=== PATIENT | male | born 1950 | race African-American/Black ===

== ENCOUNTER 2020-06-22 19:29 | Inpatient (IN) | payer OTHER ==
[~2020-06-22] VITALS: Ht 185.4 cm; Wt 114.8 kg
[2020-06-22 22:35] LABS: HEMOGLOBIN. 15.3 g/dL (14.0-18.0); MEAN CORPUSCULAR HEMOGLOBIN 29.3 pg (28.0-32.0); MEAN PLATELET VOLUME 7.2 fl (7.4-10.4); PLATELET 318 x1000/uL (130-400); RED BLOOD CELL COUNT 5.23 mill/uL (4.7-6.1); RED CELL DISTRIBUTION WIDTH 17.3 % (11.6-14.6)
[2020-06-22 22:41] LABS: CHLORIDE 100 mEq/L (98-107)
[2020-06-22 22:45] LABS: PROTHROMBIN TIME 10.7 sec (9.6-11.0)
[2020-06-22 22:47] LABS: ETHANOL BLOOD < 10 mg/dL
[2020-06-22 22:55] LABS: PLATELET ESTIMATE NORMAL
[2020-06-22] MEDS ORDERED: ACYCLOVIR INJ 750 MG in DEXT 5% WATER 125 ML IV SCH (23:00)
[2020-06-22] MEDS ORDERED: VANCOMYCIN 1 G PREMIX 200 ML IV SCH (23:00)
[2020-06-22] MEDS ORDERED: CEFTRIAXONE 1 G PREMIX 50 ML IV ONE (23:00)
[2020-06-23] VITALS (8 sets, daily range): BP systolic 109–134; BP diastolic 59–96
[2020-06-23] MEDS ORDERED: MAGNESIUM/ALUMINUM HYDROXIDE/SIMETHICONE 30ML UDC PO PRN
[2020-06-23] MEDS ORDERED: ONDANSETRON HCL 4MG/2ML INJ IV PRN
[2020-06-23] MEDS ORDERED: GUAIFENESIN 200MG/10ML SUGAR FREE UDC PO PRN
[2020-06-23] MEDS ORDERED: HYDRALAZINE 20MG/ML VIAL IV PRN
[2020-06-23] MEDS ORDERED: DIPHENHYDRAMINE 50MG/ML VIAL IV PRN
[2020-06-23] MEDS ORDERED: HYDROCODONE/ACETAMINOPHEN 5/325MG TABLET PO PRN
[2020-06-23] MEDS ORDERED: MORPHINE SULFATE 2 MG/ML CPJ (NOT FOR IM USE) IV PRN
[2020-06-23] MEDS ORDERED: CLONIDINE 0.1MG TABLET PO PRN
[2020-06-23] MEDS ORDERED: DOCUSATE SODIUM 100MG CAPSULE PO PRN
[2020-06-23] MEDS: DEXT 5%/0.45% NACL 1000ML 1,000 ML IV SCH ×2 (05:00→17:46)
[2020-06-23] MEDS: SODIUM CHLORIDE 0.9% INJ 3ML FLUSH IVF SCH ×3 (06:04→21:08)
[2020-06-23 06:42] LABS: BASOPHILS % 0.4 % (0.0-2.0); HEMATOCRIT. 47.5 % (42.0-52.0); HEMOGLOBIN. 15.3 g/dL (14.0-18.0); LYMPHOCYTES % 7.4 % (20.0-50.0); MEAN CORPUSCULAR HEMOGLOBIN 28.7 pg (28.0-32.0); MEAN PLATELET VOLUME 7.1 fl (7.4-10.4); MONOCYTES % 10.1 % (2.0-8.0); NEUTROPHILS % 82.1 % (40.0-76.0); PLATELET 239 x1000/uL (130-400); RED BLOOD CELL COUNT 5.34 mill/uL (4.7-6.1); RED CELL DISTRIBUTION WIDTH 17.1 % (11.6-14.6)
[2020-06-23 07:38] LABS: CHLORIDE 100 mEq/L (98-107)
[2020-06-23 07:47] LABS: CREATINE KINASE 102 IU/L (39-308)
[2020-06-23 07:49] LABS: CREATINE KINASE MB FRACTION 2.6 ng/mL (0.5-3.6)
[2020-06-23] MEDS ORDERED: LEVETIRACETAM 500MG PREMIX 100 ML IV SCH (09:00)
[2020-06-23] MEDS: ENOXAPARIN 30MG/0.3ML SYR SUBCUT SCH ×2 (10:24→21:08)
[2020-06-23] MEDS: LEVETIRACETAM 500MG PREMIX 100 ML IV SCH ×2 (10:25→21:08)
[2020-06-23] MEDS: ASPIRIN 81MG TABLET PO SCH (11:07)
[2020-06-23] MEDS: DILTIAZEM HCL 30MG TABLET PO SCH ×2 (11:08→17:46)
[2020-06-23] MEDS: FUROSEMIDE 40MG/4ML VIAL IVP SCH (11:46)
[2020-06-23 16:34] LABS: CREATINE KINASE MB FRACTION 2.4 ng/mL (0.5-3.6)
[2020-06-23] MEDS: LORAZEPAM 2MG/ML CPJ IV PRN (21:09)
[2020-06-24] VITALS (11 sets, daily range): BP systolic 128–155; BP diastolic 74–102
[2020-06-24] MEDS: DILTIAZEM HCL 30MG TABLET PO SCH ×3 (03:24→11:51)
[2020-06-24] MEDS: SODIUM CHLORIDE 0.9% INJ 3ML FLUSH IVF SCH ×3 (04:45→22:26)
[2020-06-24 06:43] LABS: BASOPHILS % 0.4 % (0.0-2.0); EOSINOPHILS % 0.1 % (0.0-5.0); HEMATOCRIT. 42.3 % (42.0-52.0); HEMOGLOBIN. 13.9 g/dL (14.0-18.0); LYMPHOCYTES % 13.5 % (20.0-50.0); MEAN CORPUSCULAR HEMOGLOBIN 28.7 pg (28.0-32.0); MEAN CORPUSCULAR VOLUME 87.6 fL (80.0-94.0); MEAN PLATELET VOLUME 7.4 fl (7.4-10.4); MONOCYTES % 8.4 % (2.0-8.0); NEUTROPHILS % 77.6 % (40.0-76.0); PLATELET 259 x1000/uL (130-400); RED BLOOD CELL COUNT 4.83 mill/uL (4.7-6.1); RED CELL DISTRIBUTION WIDTH 17.2 % (11.6-14.6)
[2020-06-24 07:41] LABS: CHLORIDE 100 mEq/L (98-107)
[2020-06-24] MEDS: ASPIRIN 81MG TABLET PO SCH (09:00)
[2020-06-24] MEDS: FUROSEMIDE 40MG/4ML VIAL IVP SCH (09:14)
[2020-06-24] MEDS: ENOXAPARIN 30MG/0.3ML SYR SUBCUT SCH ×2 (09:15→20:31)
[2020-06-24] MEDS: LEVETIRACETAM 500MG PREMIX 100 ML IV SCH (09:24)
[2020-06-24] MEDS: DEXT 5%/0.45% NACL 1000ML 1,000 ML IV SCH (11:04)
[2020-06-24] MEDS ORDERED: DILTIAZEM HCL 125 MG in DEXT 5% WATER 100 ML IV SCH (13:00)
[2020-06-24] MEDS ORDERED: ACETAMINOPHEN 650MG SUPP PR PRN (13:15)
[2020-06-24] MEDS: DILTIAZEM HCL 125 MG in DEXT 5% WATER 100 ML IV SCH (14:00)
[2020-06-24] MEDS: LORAZEPAM 2MG/ML CPJ IV PRN ×2 (14:59→19:29)
[2020-06-24] MEDS: LEVETIRACETAM 1000MG PREMIX 100 ML IV SCH (20:32)
[2020-06-25] VITALS (36 sets, daily range): BP systolic 75–159; BP diastolic 30–102
[2020-06-25] MEDS: LORAZEPAM 2MG/ML CPJ IV PRN ×4 (00:28→12:08)
[2020-06-25] MEDS: DILTIAZEM HCL 125 MG in DEXT 5% WATER 100 ML IV SCH ×3 (02:18→23:09)
[2020-06-25] MEDS: DEXT 5%/0.45% NACL 1000ML 1,000 ML IV SCH ×2 (03:00→23:15)
[2020-06-25] MEDS: SODIUM CHLORIDE 0.9% INJ 3ML FLUSH IVF SCH ×3 (06:03→21:41)
[2020-06-25 06:28] LABS: BASOPHILS % 0.6 % (0.0-2.0); EOSINOPHILS % 0.3 % (0.0-5.0); HEMATOCRIT. 43.8 % (42.0-52.0); HEMOGLOBIN. 14.6 g/dL (14.0-18.0); LYMPHOCYTES % 15.3 % (20.0-50.0); MEAN CORPUSCULAR VOLUME 86.9 fL (80.0-94.0); MEAN PLATELET VOLUME 7.2 fl (7.4-10.4); MONOCYTES % 8.4 % (2.0-8.0); NEUTROPHILS % 75.4 % (40.0-76.0); PLATELET 235 x1000/uL (130-400); RED BLOOD CELL COUNT 5.04 mill/uL (4.7-6.1); RED CELL DISTRIBUTION WIDTH 17.1 % (11.6-14.6)
[2020-06-25 07:38] LABS: CHLORIDE 102 mEq/L (98-107)
[2020-06-25] MEDS: FUROSEMIDE 40MG/4ML VIAL IVP SCH (08:18)
[2020-06-25] MEDS: ASPIRIN 81MG TABLET PO SCH (08:18)
[2020-06-25] MEDS: ENOXAPARIN 30MG/0.3ML SYR SUBCUT SCH ×2 (08:18→21:40)
[2020-06-25] MEDS: LEVETIRACETAM 1000MG PREMIX 100 ML IV SCH (08:19)
[2020-06-25] MEDS ORDERED: POTASSIUM CHLORIDE INJ 40 MEQ in DEXT 5% WATER 250 ML IV SCH (10:00)
[2020-06-25] MEDS ORDERED: DIGOXIN 500MCG/2ML AMP IV SCH (12:00)
[2020-06-25] MEDS ORDERED: LEVETIRACETAM 1,500 MG in SODIUM CHLORIDE 0.9% 100 ML IV SCH (13:00)
[2020-06-25] MEDS ORDERED: PHENYTOIN SODIUM 100MG/2ML VIAL IV ONE (14:15)
[2020-06-25] MEDS: PHENYTOIN SODIUM 100MG/2ML VIAL IV SCH ×2 (14:17→21:40)
[2020-06-25] MEDS ORDERED: PHENYLEPHRINE 100 MG in DEXT 5% WATER 240 ML IV PRN (14:30)
[2020-06-25] MEDS ORDERED: PHENYTOIN SODIUM 500 MG in SODIUM CHLORIDE 0.9% 100 ML IV SCH (15:00)
[2020-06-25] MEDS: ACETAMINOPHEN 325MG TABLET PO PRN (15:34)
[2020-06-25 15:51] LABS: *AMPHETAMINES SCREEN URINE NEGATIVE (NEGATIVE); *BARBITURATES SCREEN URINE NEGATIVE (NEGATIVE); *BENZODIAZEPINES SCREEN URINE NEGATIVE (NEGATIVE); CANNABINOID URINE SCREEN NEGATIVE (NEGATIVE); OPIATES URINE SCREEN NEGATIVE (NEGATIVE); PHENCYCLIDINE URINE SCREEN NEGATIVE (NEGATIVE)
[2020-06-25 15:52] LABS: *COCAINE SCREEN URINE NEGATIVE (NEGATIVE)
[2020-06-25 15:56] LABS: METHADONE URINE SCREEN NEGATIVE (NEGATIVE)
[2020-06-25] MEDS ORDERED: METOPROLOL TARTRATE 25MG TABLET NG SCH (21:00)
[2020-06-25] MEDS: LEVETIRACETAM 1,500 MG in SODIUM CHLORIDE 0.9% 100 ML IV SCH (21:40)
[2020-06-26] VITALS (92 sets, daily range): BP systolic 101–149; BP diastolic 20–112
[2020-06-26] MEDS: LORAZEPAM 2MG/ML CPJ IV PRN ×2 (04:31→07:12)
[2020-06-26] MEDS: SODIUM CHLORIDE 0.9% INJ 3ML FLUSH IVF SCH ×3 (06:17→21:49)
[2020-06-26] MEDS: PHENYTOIN SODIUM 100MG/2ML VIAL IV SCH ×3 (06:17→21:49)
[2020-06-26 06:34] LABS: BASOPHILS % 0.4 % (0.0-2.0); HEMATOCRIT. 46.3 % (42.0-52.0); HEMOGLOBIN. 15.1 g/dL (14.0-18.0); LYMPHOCYTES % 17.5 % (20.0-50.0); MEAN CORPUSCULAR HEMOGLOBIN 28.4 pg (28.0-32.0); MEAN CORPUSCULAR VOLUME 87.5 fL (80.0-94.0); MEAN PLATELET VOLUME 7.2 fl (7.4-10.4); MONOCYTES % 7.4 % (2.0-8.0); NEUTROPHILS % 73.7 % (40.0-76.0); PLATELET 214 x1000/uL (130-400); RED CELL DISTRIBUTION WIDTH 16.7 % (11.6-14.6)
[2020-06-26 07:03] LABS: CHLORIDE 103 mEq/L (98-107)
[2020-06-26] MEDS ORDERED: METOPROLOL TARTRATE 50MG TABLET NG SCH (09:30)
[2020-06-26] MEDS: LEVETIRACETAM 1,500 MG in SODIUM CHLORIDE 0.9% 100 ML IV SCH ×2 (09:34→23:07)
[2020-06-26] MEDS: FUROSEMIDE 40MG/4ML VIAL IVP SCH (09:34)
[2020-06-26] MEDS: ENOXAPARIN 30MG/0.3ML SYR SUBCUT SCH ×2 (09:34→20:58)
[2020-06-26] MEDS: DILTIAZEM HCL 125 MG in DEXT 5% WATER 100 ML IV SCH ×3 (09:35→21:20)
[2020-06-26] MEDS: ASPIRIN 81MG TABLET PO SCH (09:35)
[2020-06-26] MEDS ORDERED: PHENYTOIN SODIUM 100MG/2ML VIAL IV ONE (10:45)
[2020-06-26] MEDS ORDERED: PHENYTOIN SODIUM 500MG in SODIUM CHLORIDE 0.9% 50ML IV SCH (12:00)
[2020-06-26] MEDS: DEXT 5%/0.45% NACL 1000ML 1,000 ML IV SCH ×2 (12:35→23:09)
[2020-06-26] MEDS: METOPROLOL TARTRATE 50MG TABLET NG SCH ×2 (17:50→20:58)
[2020-06-26] MEDS ORDERED: IOHEXOL-350 100 ML BOTTLE ONE (23:22)
[2020-06-27] VITALS (95 sets, daily range): BP systolic 89–179; BP diastolic 44–123
[2020-06-27] MEDS: LORAZEPAM 2MG/ML CPJ IV PRN ×2 (00:27→16:00)
[2020-06-27] MEDS: DEXT 5%/0.45% NACL 1000ML 1,000 ML IV SCH ×2 (04:45→21:13)
[2020-06-27] MEDS: DILTIAZEM HCL 125 MG in DEXT 5% WATER 100 ML IV SCH ×3 (04:45→22:13)
[2020-06-27] MEDS: PHENYTOIN SODIUM 100MG/2ML VIAL IV SCH ×3 (05:43→21:12)
[2020-06-27] MEDS: SODIUM CHLORIDE 0.9% INJ 3ML FLUSH IVF SCH ×3 (05:43→21:12)
[2020-06-27 06:52] LABS: BASOPHILS % 0.5 % (0.0-2.0); EOSINOPHILS % 1.5 % (0.0-5.0); HEMATOCRIT. 46.1 % (42.0-52.0); HEMOGLOBIN. 15.4 g/dL (14.0-18.0); LYMPHOCYTES % 15.3 % (20.0-50.0); MEAN CORPUSCULAR VOLUME 86.6 fL (80.0-94.0); MEAN PLATELET VOLUME 7.5 fl (7.4-10.4); NEUTROPHILS % 75.7 % (40.0-76.0); PLATELET 242 x1000/uL (130-400); RED BLOOD CELL COUNT 5.33 mill/uL (4.7-6.1); RED CELL DISTRIBUTION WIDTH 16.9 % (11.6-14.6)
[2020-06-27 06:55] LABS: CHLORIDE 102 mEq/L (98-107)
[2020-06-27] MEDS: ASPIRIN 81MG TABLET PO SCH (08:38)
[2020-06-27] MEDS: LEVETIRACETAM 1,500 MG in SODIUM CHLORIDE 0.9% 100 ML IV SCH ×2 (08:38→22:13)
[2020-06-27] MEDS: METOPROLOL TARTRATE 50MG TABLET NG SCH (08:38)
[2020-06-27] MEDS: FUROSEMIDE 40MG/4ML VIAL IVP SCH (08:39)
[2020-06-27] MEDS: ENOXAPARIN 30MG/0.3ML SYR SUBCUT SCH ×2 (08:39→21:11)
[2020-06-27] MEDS ORDERED: POTASSIUM CHLORIDE 20MEQ TABLET SR PO NR (10:30)
[2020-06-27] MEDS ORDERED: KCL 20MEQ/100ML PREMIX 100 ML IV NR (10:30)
[2020-06-27] MEDS: ZONISAMIDE 100MG CAPSULE PO SCH (19:43)
[2020-06-27] MEDS: ACETAMINOPHEN 325MG TABLET PO PRN (21:11)
[2020-06-27] MEDS: METOPROLOL TARTRATE 100MG TABLET NG SCH (21:12)
[2020-06-28] VITALS (94 sets, daily range): BP systolic 89–156; BP diastolic 20–114
[2020-06-28] MEDS: LORAZEPAM 2MG/ML CPJ IV PRN (02:32)
[2020-06-28] MEDS: SODIUM CHLORIDE 0.9% INJ 3ML FLUSH IVF SCH ×3 (05:27→21:43)
[2020-06-28] MEDS: PHENYTOIN SODIUM 100MG/2ML VIAL IV SCH ×3 (05:27→21:42)
[2020-06-28 06:41] LABS: BASOPHILS % 0.6 % (0.0-2.0); EOSINOPHILS % 1.6 % (0.0-5.0); HEMATOCRIT. 45.6 % (42.0-52.0); HEMOGLOBIN. 14.9 g/dL (14.0-18.0); LYMPHOCYTES % 17.6 % (20.0-50.0); MEAN CORPUSCULAR HEMOGLOBIN 28.4 pg (28.0-32.0); MEAN CORPUSCULAR VOLUME 86.7 fL (80.0-94.0); MEAN PLATELET VOLUME 7.4 fl (7.4-10.4); MONOCYTES % 6.6 % (2.0-8.0); NEUTROPHILS % 73.6 % (40.0-76.0); PLATELET 249 x1000/uL (130-400); RED BLOOD CELL COUNT 5.26 mill/uL (4.7-6.1); RED CELL DISTRIBUTION WIDTH 16.8 % (11.6-14.6)
[2020-06-28 06:50] LABS: CHLORIDE 102 mEq/L (98-107)
[2020-06-28] MEDS: FUROSEMIDE 40MG/4ML VIAL IVP SCH (08:53)
[2020-06-28] MEDS: DILTIAZEM HCL 125 MG in DEXT 5% WATER 100 ML IV SCH ×2 (08:53→14:17)
[2020-06-28] MEDS: LEVETIRACETAM 1,500 MG in SODIUM CHLORIDE 0.9% 100 ML IV SCH ×2 (08:53→21:42)
[2020-06-28] MEDS: ZONISAMIDE 100MG CAPSULE PO SCH (08:54)
[2020-06-28] MEDS: METOPROLOL TARTRATE 100MG TABLET NG SCH ×2 (08:54→21:43)
[2020-06-28] MEDS: ENOXAPARIN 30MG/0.3ML SYR SUBCUT SCH ×2 (08:54→21:43)
[2020-06-28] MEDS: ASPIRIN 81MG TABLET PO SCH (08:54)
[2020-06-28] MEDS: IPRATROPIUM/ALBUTEROL 0.5-3(2.5)MG/3ML NEB HHN PRN (08:56)
[2020-06-28] MEDS ORDERED: POTASSIUM CHLORIDE 20MEQ TABLET SR PO SCH (12:45)
[2020-06-28] MEDS: DEXT 5%/0.45% NACL 1000ML 1,000 ML IV SCH (14:17)
[2020-06-29] VITALS (92 sets, daily range): BP systolic 98–175; BP diastolic 36–119
[2020-06-29] MEDS: DEXT 5%/0.45% NACL 1000ML 1,000 ML IV SCH ×2 (03:16→20:21)
[2020-06-29] MEDS: DILTIAZEM HCL 125 MG in DEXT 5% WATER 100 ML IV SCH ×3 (03:16→17:46)
[2020-06-29] MEDS: SODIUM CHLORIDE 0.9% INJ 3ML FLUSH IVF SCH ×3 (05:41→22:00)
[2020-06-29 05:45] LABS: BASOPHILS % 0.7 % (0.0-2.0); EOSINOPHILS % 2.1 % (0.0-5.0); HEMATOCRIT. 45.5 % (42.0-52.0); HEMOGLOBIN. 14.6 g/dL (14.0-18.0); LYMPHOCYTES % 14.6 % (20.0-50.0); MEAN CORPUSCULAR HEMOGLOBIN 28.2 pg (28.0-32.0); MEAN CORPUSCULAR VOLUME 87.6 fL (80.0-94.0); MEAN PLATELET VOLUME 7.4 fl (7.4-10.4); MONOCYTES % 6.3 % (2.0-8.0); NEUTROPHILS % 76.3 % (40.0-76.0); PLATELET 234 x1000/uL (130-400); RED BLOOD CELL COUNT 5.19 mill/uL (4.7-6.1); RED CELL DISTRIBUTION WIDTH 17.2 % (11.6-14.6)
[2020-06-29 05:51] LABS: CHLORIDE 105 mEq/L (98-107)
[2020-06-29] MEDS: PHENYTOIN SODIUM 100MG/2ML VIAL IV SCH ×3 (06:03→21:17)
[2020-06-29] MEDS: LORAZEPAM 2MG/ML CPJ IV PRN ×2 (06:03→14:37)
[2020-06-29] MEDS: LEVETIRACETAM 1,500 MG in SODIUM CHLORIDE 0.9% 100 ML IV SCH ×2 (08:43→21:17)
[2020-06-29] MEDS: ASPIRIN 81MG TABLET PO SCH (08:44)
[2020-06-29] MEDS: FUROSEMIDE 40MG/4ML VIAL IVP SCH (08:44)
[2020-06-29] MEDS: ENOXAPARIN 30MG/0.3ML SYR SUBCUT SCH ×2 (08:44→20:17)
[2020-06-29] MEDS: ZONISAMIDE 100MG CAPSULE PO SCH (08:44)
[2020-06-29] MEDS: METOPROLOL TARTRATE 100MG TABLET NG SCH ×2 (08:45→20:19)
[2020-06-29] MEDS: ACETYLCYSTEINE 100MG/ML 10% VIAL 4ML INH SCH (16:44)
[2020-06-29] MEDS: IPRATROPIUM BROMIDE (0.02%) 0.5MG/2.5ML NEB HHN SCH (16:44)
[2020-06-29] MEDS: ACETAMINOPHEN 325MG TABLET PO PRN (20:17)
[2020-06-30] VITALS (92 sets, daily range): BP systolic 84–174; BP diastolic 37–108
[2020-06-30] MEDS: IPRATROPIUM BROMIDE (0.02%) 0.5MG/2.5ML NEB HHN SCH ×3 (01:15→15:25)
[2020-06-30] MEDS: ACETYLCYSTEINE 100MG/ML 10% VIAL 4ML INH SCH ×3 (01:16→15:26)
[2020-06-30] MEDS: DILTIAZEM HCL 125 MG in DEXT 5% WATER 100 ML IV SCH ×4 (01:25→23:00)
[2020-06-30] MEDS: LORAZEPAM 2MG/ML CPJ IV PRN (01:57)
[2020-06-30] MEDS: PHENYTOIN SODIUM 100MG/2ML VIAL IV SCH ×3 (05:27→21:00)
[2020-06-30] MEDS: SODIUM CHLORIDE 0.9% INJ 3ML FLUSH IVF SCH ×3 (06:00→21:00)
[2020-06-30 06:13] LABS: BASOPHILS % 0.4 % (0.0-2.0); EOSINOPHILS % 2.8 % (0.0-5.0); HEMOGLOBIN. 14.8 g/dL (14.0-18.0); LYMPHOCYTES % 18.6 % (20.0-50.0); MEAN CORPUSCULAR HEMOGLOBIN 28.4 pg (28.0-32.0); MEAN CORPUSCULAR VOLUME 88.1 fL (80.0-94.0); MEAN PLATELET VOLUME 7.5 fl (7.4-10.4); MONOCYTES % 8.4 % (2.0-8.0); NEUTROPHILS % 69.8 % (40.0-76.0); PLATELET 245 x1000/uL (130-400); RED BLOOD CELL COUNT 5.22 mill/uL (4.7-6.1); RED CELL DISTRIBUTION WIDTH 17.1 % (11.6-14.6)
[2020-06-30 06:21] LABS: CHLORIDE 105 mEq/L (98-107)
[2020-06-30] MEDS: FUROSEMIDE 40MG/4ML VIAL IVP SCH (09:38)
[2020-06-30] MEDS: ENOXAPARIN 30MG/0.3ML SYR SUBCUT SCH ×2 (09:38→20:58)
[2020-06-30] MEDS: LEVETIRACETAM 1,500 MG in SODIUM CHLORIDE 0.9% 100 ML IV SCH ×2 (09:39→21:03)
[2020-06-30] MEDS: METOPROLOL TARTRATE 100MG TABLET NG SCH ×2 (09:39→20:59)
[2020-06-30] MEDS: ZONISAMIDE 100MG CAPSULE PO SCH (09:39)
[2020-06-30] MEDS: ASPIRIN 81MG TABLET PO SCH (09:39)
[2020-06-30] MEDS: DILTIAZEM HCL 60MG TABLET PO SCH ×3 (12:00→23:57)
[2020-06-30] MEDS: DEXT 5%/0.45% NACL 1000ML 1,000 ML IV SCH (17:03)
[2020-07-01] VITALS (94 sets, daily range): BP systolic 86–153; BP diastolic 30–104
[2020-07-01] MEDS: ACETYLCYSTEINE 100MG/ML 10% VIAL 4ML INH SCH ×3 (00:27→15:59)
[2020-07-01] MEDS: IPRATROPIUM BROMIDE (0.02%) 0.5MG/2.5ML NEB HHN SCH ×3 (00:27→15:59)
[2020-07-01 05:51] LABS: BASOPHILS % 0.8 % (0.0-2.0); EOSINOPHILS % 2.4 % (0.0-5.0); HEMATOCRIT. 45.8 % (42.0-52.0); HEMOGLOBIN. 15.1 g/dL (14.0-18.0); LYMPHOCYTES % 18.5 % (20.0-50.0); MEAN CORPUSCULAR HEMOGLOBIN 28.9 pg (28.0-32.0); MEAN CORPUSCULAR VOLUME 87.6 fL (80.0-94.0); MEAN PLATELET VOLUME 7.4 fl (7.4-10.4); MONOCYTES % 9.9 % (2.0-8.0); NEUTROPHILS % 68.4 % (40.0-76.0); PLATELET 256 x1000/uL (130-400); RED BLOOD CELL COUNT 5.23 mill/uL (4.7-6.1); RED CELL DISTRIBUTION WIDTH 16.8 % (11.6-14.6)
[2020-07-01] MEDS: DILTIAZEM HCL 60MG TABLET PO SCH (06:00)
[2020-07-01] MEDS: SODIUM CHLORIDE 0.9% INJ 3ML FLUSH IVF SCH (06:12)
[2020-07-01] MEDS: PHENYTOIN SODIUM 100MG/2ML VIAL IV SCH ×3 (06:13→22:07)
[2020-07-01 06:14] LABS: CHLORIDE 107 mEq/L (98-107)
[2020-07-01] MEDS: METOPROLOL TARTRATE 100MG TABLET NG SCH ×2 (09:00→22:08)
[2020-07-01] MEDS: DILTIAZEM HCL 125 MG in DEXT 5% WATER 100 ML IV SCH (09:35)
[2020-07-01] MEDS: DEXT 5%/0.45% NACL 1000ML 1,000 ML IV SCH (09:35)
[2020-07-01] MEDS: LEVETIRACETAM 1,500 MG in SODIUM CHLORIDE 0.9% 100 ML IV SCH ×2 (09:35→21:05)
[2020-07-01] MEDS: FUROSEMIDE 40MG/4ML VIAL IVP SCH (09:36)
[2020-07-01] MEDS: ZONISAMIDE 100MG CAPSULE PO SCH (09:36)
[2020-07-01] MEDS: ASPIRIN 81MG TABLET PO SCH (09:36)
[2020-07-01] MEDS: ENOXAPARIN 30MG/0.3ML SYR SUBCUT SCH ×2 (09:55→21:07)
[2020-07-01] MEDS: DILTIAZEM HCL 90MG TABLET PO SCH ×2 (12:08→17:39)
[2020-07-01 13:49] LABS: CLARITY URINE CLOUDY (CLEAR); COLOR URINE YELLOW (YELLOW); KETONES URINE NEGATIVE (NEGATIVE); LEUKOCYTE ESTERASE URINE TRACE (NEGATIVE); NITRITE URINE NEGATIVE (NEGATIVE); OCCULT BLOOD URINE 3+ (NEGATIVE); PROTEIN URINE 1+ (NEGATIVE); UROBILINOGEN URINE 0.2 E.U./dL (0.2-1.0)
[2020-07-01] MEDS ORDERED: DIGOXIN 125MCG TABLET PO SCH (18:00)
[2020-07-01] MEDS ORDERED: MIDODRINE HCL 2.5MG TABLET PO NR (21:00)
[2020-07-01] MEDS ORDERED: DIGOXIN 500MCG/2ML AMP IV NR (23:09)
[2020-07-02] VITALS (89 sets, daily range): BP systolic 60–150; BP diastolic 28–101
[2020-07-02] MEDS: IPRATROPIUM BROMIDE (0.02%) 0.5MG/2.5ML NEB HHN SCH ×3 (00:13→15:04)
[2020-07-02] MEDS: ACETYLCYSTEINE 100MG/ML 10% VIAL 4ML INH SCH ×3 (00:13→15:04)
[2020-07-02] MEDS: DILTIAZEM HCL 90MG TABLET PO SCH ×5 (00:43→23:07)
[2020-07-02] MEDS: DEXT 5%/0.45% NACL 1000ML 1,000 ML IV SCH ×2 (01:54→19:58)
[2020-07-02 05:40] LABS: BASOPHILS % 0.6 % (0.0-2.0); EOSINOPHILS % 3.1 % (0.0-5.0); HEMATOCRIT. 45.5 % (42.0-52.0); HEMOGLOBIN. 14.7 g/dL (14.0-18.0); LYMPHOCYTES % 18.9 % (20.0-50.0); MEAN CORPUSCULAR HEMOGLOBIN 28.6 pg (28.0-32.0); MEAN CORPUSCULAR VOLUME 88.7 fL (80.0-94.0); MEAN PLATELET VOLUME 7.6 fl (7.4-10.4); NEUTROPHILS % 68.4 % (40.0-76.0); PLATELET 251 x1000/uL (130-400); RED BLOOD CELL COUNT 5.13 mill/uL (4.7-6.1); RED CELL DISTRIBUTION WIDTH 17.4 % (11.6-14.6)
[2020-07-02 06:05] LABS: CHLORIDE 107 mEq/L (98-107)
[2020-07-02] MEDS: PHENYTOIN SODIUM 100MG/2ML VIAL IV SCH ×3 (06:43→23:09)
[2020-07-02] MEDS: LEVETIRACETAM 1,500 MG in SODIUM CHLORIDE 0.9% 100 ML IV SCH ×2 (08:10→20:41)
[2020-07-02] MEDS: ASPIRIN 81MG TABLET PO SCH (09:16)
[2020-07-02] MEDS: ZONISAMIDE 100MG CAPSULE PO SCH (09:16)
[2020-07-02] MEDS: FUROSEMIDE 40MG/4ML VIAL IVP SCH (09:16)
[2020-07-02] MEDS: ENOXAPARIN 30MG/0.3ML SYR SUBCUT SCH ×2 (09:34→20:43)
[2020-07-02] MEDS: METOPROLOL TARTRATE 100MG TABLET NG SCH ×2 (09:45→20:42)
[2020-07-02] MEDS: MIDODRINE HCL 2.5MG TABLET PO SCH ×3 (11:18→17:02)
[2020-07-02] MEDS: DIGOXIN 500MCG/2ML AMP IV SCH (17:07)
[2020-07-03] VITALS (46 sets, daily range): BP systolic 87–158; BP diastolic 42–86
[2020-07-03] MEDS: IPRATROPIUM/ALBUTEROL 0.5-3(2.5)MG/3ML NEB HHN PRN (01:21)
[2020-07-03] MEDS: ACETYLCYSTEINE 100MG/ML 10% VIAL 4ML INH SCH ×2 (01:22→07:27)
[2020-07-03] MEDS: LORAZEPAM 2MG/ML CPJ IV PRN (01:30)
[2020-07-03 05:53] LABS: BASOPHILS % 0.6 % (0.0-2.0); EOSINOPHILS % 2.1 % (0.0-5.0); HEMATOCRIT. 42.2 % (42.0-52.0); HEMOGLOBIN. 14.2 g/dL (14.0-18.0); LYMPHOCYTES % 12.8 % (20.0-50.0); MEAN CORPUSCULAR HEMOGLOBIN 29.3 pg (28.0-32.0); MEAN CORPUSCULAR VOLUME 87.4 fL (80.0-94.0); MEAN PLATELET VOLUME 7.6 fl (7.4-10.4); MONOCYTES % 7.3 % (2.0-8.0); NEUTROPHILS % 77.2 % (40.0-76.0); PLATELET 250 x1000/uL (130-400); RED BLOOD CELL COUNT 4.83 mill/uL (4.7-6.1); RED CELL DISTRIBUTION WIDTH 16.3 % (11.6-14.6)
[2020-07-03 06:03] LABS: CHLORIDE 109 mEq/L (98-107)
[2020-07-03] MEDS: PHENYTOIN SODIUM 100MG/2ML VIAL IV SCH ×3 (06:42→21:26)
[2020-07-03] MEDS: DILTIAZEM HCL 90MG TABLET PO SCH ×4 (06:42→23:57)
[2020-07-03] MEDS: IPRATROPIUM BROMIDE (0.02%) 0.5MG/2.5ML NEB HHN SCH ×2 (07:26→15:13)
[2020-07-03] MEDS: ASPIRIN 81MG TABLET PO SCH (08:35)
[2020-07-03] MEDS: ZONISAMIDE 100MG CAPSULE PO SCH (08:35)
[2020-07-03] MEDS: FUROSEMIDE 40MG/4ML VIAL IVP SCH (08:36)
[2020-07-03] MEDS: LEVETIRACETAM 1,500 MG in SODIUM CHLORIDE 0.9% 100 ML IV SCH ×2 (08:36→20:28)
[2020-07-03] MEDS: MIDODRINE HCL 2.5MG TABLET PO SCH ×3 (08:36→16:15)
[2020-07-03] MEDS: METOPROLOL TARTRATE 100MG TABLET NG SCH ×2 (08:38→20:30)
[2020-07-03] MEDS: ENOXAPARIN 30MG/0.3ML SYR SUBCUT SCH ×2 (08:39→20:31)
[2020-07-03] MEDS ORDERED: POTASSIUM CHLORIDE 20MEQ TABLET SR PO NR (09:30)
[2020-07-03] MEDS: DEXT 5%/0.45% NACL 1000ML 1,000 ML IV SCH (10:42)
[2020-07-03] MEDS: DIGOXIN 500MCG/2ML AMP IV SCH (17:56)
[2020-07-04] VITALS (35 sets, daily range): BP systolic 97–143; BP diastolic 37–89
[2020-07-04] MEDS: IPRATROPIUM BROMIDE (0.02%) 0.5MG/2.5ML NEB HHN SCH ×3 (00:05→16:18)
[2020-07-04] MEDS: ACETYLCYSTEINE 100MG/ML 10% VIAL 4ML INH SCH ×2 (00:05→08:50)
[2020-07-04] MEDS: DILTIAZEM HCL 90MG TABLET PO SCH ×3 (05:33→18:22)
[2020-07-04] MEDS: PHENYTOIN SODIUM 100MG/2ML VIAL IV SCH ×2 (05:34→14:13)
[2020-07-04] MEDS: DEXT 5%/0.45% NACL 1000ML 1,000 ML IV SCH (05:37)
[2020-07-04 06:22] LABS: CHLORIDE 113 mEq/L (98-107)
[2020-07-04 06:31] LABS: BASOPHILS % 0.5 % (0.0-2.0); EOSINOPHILS % 2.8 % (0.0-5.0); HEMATOCRIT. 45.6 % (42.0-52.0); HEMOGLOBIN. 14.6 g/dL (14.0-18.0); LYMPHOCYTES % 19.9 % (20.0-50.0); MEAN CORPUSCULAR HEMOGLOBIN 28.3 pg (28.0-32.0); MEAN CORPUSCULAR VOLUME 88.6 fL (80.0-94.0); MEAN PLATELET VOLUME 7.9 fl (7.4-10.4); MONOCYTES % 6.6 % (2.0-8.0); NEUTROPHILS % 70.2 % (40.0-76.0); PLATELET 275 x1000/uL (130-400); RED BLOOD CELL COUNT 5.14 mill/uL (4.7-6.1); RED CELL DISTRIBUTION WIDTH 17.2 % (11.6-14.6)
[2020-07-04] MEDS: LEVETIRACETAM 1,500 MG in SODIUM CHLORIDE 0.9% 100 ML IV SCH (08:30)
[2020-07-04] MEDS: ZONISAMIDE 100MG CAPSULE PO SCH (08:31)
[2020-07-04] MEDS: ENOXAPARIN 30MG/0.3ML SYR SUBCUT SCH (08:31)
[2020-07-04] MEDS: ASPIRIN 81MG TABLET PO SCH (08:31)
[2020-07-04] MEDS: MIDODRINE HCL 2.5MG TABLET PO SCH ×3 (08:33→18:22)
[2020-07-04] MEDS: FUROSEMIDE 40MG/4ML VIAL IVP SCH (08:33)
[2020-07-04] MEDS: METOPROLOL TARTRATE 100MG TABLET NG SCH (08:33)
[2020-07-04] MEDS ORDERED: PHENYTOIN 100 MG/4 ML UDC NG SCH (15:45)
[2020-07-04] MEDS: DIGOXIN 500MCG/2ML AMP IV SCH (18:23)
[2020-07-04] MEDS ORDERED: LEVETIRACETAM 500MG/5ML CUP PO SCH (21:00)
== END 2020-07-04 19:55 | disposition short-term general hospital (02) | DRG 101 ==
LOC: ER 19:29 → 5EST 23:48 → EDBEDREQDT 06-23 00:10 → EDBEDREQTM 06-23 00:10 → EDBEDREQ 06-23 00:10 → ENRESERV 06-23 02:12 → CVICU 06-25 13:17
PROVIDERS: ADMIT Internal Medicine; ATTEND Internal Medicine
PROC: 4A10X4Z Monitoring of Central Nervous Electrical Activity, External Approach (ICD-10-PCS; principal; 2020-06-25)
PROC: 02HV33Z Insertion of Infusion Device into Superior Vena Cava, Percutaneous Approach (ICD-10-PCS; 2020-06-25)
PROC: B548ZZA Ultrasonography of Superior Vena Cava, Guidance (ICD-10-PCS; 2020-06-25)
DX: G40.911 Epilepsy, unspecified, intractable, with status epilepticus (principal); I48.20 Chronic atrial fibrillation, unspecified; R65.10 Systemic inflammatory response syndrome (SIRS) of non-infectious origin without acute organ dysfunction; J81.1 Chronic pulmonary edema; F10.139 Alcohol abuse with withdrawal, unspecified; E78.5 Hyperlipidemia, unspecified; E11.9 Type 2 diabetes mellitus without complications; I25.10 Atherosclerotic heart disease of native coronary artery without angina pectoris; I27.21 Secondary pulmonary arterial hypertension; G93.89 Other specified disorders of brain; F17.210 Nicotine dependence, cigarettes, uncomplicated; R59.0 Localized enlarged lymph nodes; R13.10 Dysphagia, unspecified; R79.89 Other specified abnormal findings of blood chemistry; Z20.822 Contact with and (suspected) exposure to COVID-19; M19.90 Unspecified osteoarthritis, unspecified site; E87.6 Hypokalemia; I27.81 Cor pulmonale (chronic); I11.9 Hypertensive heart disease without heart failure; Z86.73 Personal history of transient ischemic attack (TIA), and cerebral infarction without residual deficits; Z91.81 History of falling; Z88.0 Allergy status to penicillin; F19.11 Other psychoactive substance abuse, in remission; Z98.890 Other specified postprocedural states
CPT/HCPCS: 36415; 71045; 71275; 76937; 80048; 80053; 80061; 80162; 80185; 80305; 80320; 81003; 82550; 82553; 82962; 83605; 83735; 84443; 84484; 85025; 85379; 86850; 86900; 93005; 93306; 93970; 94640; 95816; 99285; C1725; J0133; J0696; J1160; J1165; J1200; J1650; J1940; J1953; J2060; J3370; J3480; J3490; J7050; J7060; J7608; Q9967; U0003; A4315; G0480